=== PATIENT | male | born 1995 | race Caucasian/White ===

== ENCOUNTER 2024-07-14 14:00 | Inpatient (IN) | payer OTHER ==
[~2024-07-14] VITALS: Ht 160 cm; Wt 75.7 kg
[2024-07-14] MEDS ORDERED: PANTOPRAZOLE SODIUM 40 MG/VIAL IV STA (15:30)
[2024-07-14 15:45] LABS: BASOPHILS % 1.1 % (0.0-2.0); EOSINOPHILS % 3.7 % (0.0-5.0); HEMATOCRIT. 38.1 % (42.0-52.0); HEMOGLOBIN. 12.2 g/dL (14.0-18.0); LYMPHOCYTES % 40.4 % (20.0-50.0); MEAN CORPUSCULAR HEMOGLOBIN 26.1 pg (28.0-32.0); MEAN CORPUSCULAR VOLUME 81.5 fL (80.0-94.0); MEAN PLATELET VOLUME 9.7 fl (7.4-10.4); MONOCYTES % 7.6 % (2.0-8.0); NEUTROPHILS % 47.2 % (40.0-76.0); PLATELET 163 x1000/uL (130-400); RED BLOOD CELL COUNT 4.67 mill/uL (4.7-6.1); RED CELL DISTRIBUTION WIDTH 13.2 % (11.6-14.6); WHITE BLOOD COUNT 5.9 x1000/uL (4.5-11.0)
[2024-07-14 15:54] LABS: CHLORIDE 109 mEq/L (98-107); INR 0.9; POTASSIUM 3.4 mEq/L (3.5-5.1); PROTHROMBIN TIME 10.4 sec (9.6-11.0); SODIUM 140 mEq/L (136-145)
[2024-07-14 15:55] LABS: CALCIUM 8.3 mg/dL (8.7-10.4); CARBON DIOXIDE 25 mEq/L (21-32)
[2024-07-14 16:00] LABS: CREATININE 0.8 mg/dL (0.6-1.3); GLUCOSE 135 mg/dL (70-105); UREA NITROGEN BLOOD 14 mg/dL (9-23)
[2024-07-14 16:02] LABS: ALANINE AMINOTRANSFERASE 12 IU/L (10-49); ALBUMIN 3.5 g/dL (3.2-4.8); ASPARTATE AMINOTRANSFERASE 22 IU/L (<34); BILIRUBIN TOTAL 0.3 mg/dL (0.1-1.0)
[2024-07-14] MEDS: PANTOPRAZOLE SODIUM 40 MG/VIAL IV NR (16:07)
[2024-07-14 16:29] LABS: BILIRUBIN DIRECT < 0.1 mg/dL (<=3.0); TROPONIN I HIGH SENSITIVITY < 4 ng/L (3.0-53)
[2024-07-14] MEDS ORDERED: OCTREOTIDE ACETATE 50 MCG/ML 1ML SUBCUT ONE (17:00)
[2024-07-14] MEDS ORDERED: CEFTRIAXONE 1GM/50ML 50 ML IV ONE (17:00)
[2024-07-14] MEDS: SODIUM CHLORIDE 0.9% 1,000 ML IV ONE (17:00)
[2024-07-14] MEDS: CEFTRIAXONE 1GM/50ML 50 ML IV NR (17:58)
[2024-07-14] MEDS: OCTREOTIDE ACETATE 50 MCG/ML 1ML SUBCUT NR (17:58)
[2024-07-14 23:00] VITALS: BP 121/61; PULSE 87; RESP 18; TEMP 36.72516; TEMP 36.7516; O2SAT 98
[2024-07-14] MEDS ORDERED: ZOLPIDEM TARTRATE 5MG TABLET PO PRN (23:15)
[2024-07-14] MEDS ORDERED: DIPHENHYDRAMINE 50MG/ML VIAL IV PRN (23:15)
[2024-07-14] MEDS ORDERED: ACETAMINOPHEN 325MG TABLET PO PRN (23:15)
[2024-07-15] MEDS: POTASSIUM CHLORIDE 20MEQ TABLET SR PO NR (00:22)
[2024-07-15] MEDS: PANTOPRAZOLE SODIUM 40 MG/VIAL IV SCH (00:22)
[2024-07-15] MEDS: MVI, ADULT NO.1 10 ML, FOLIC ACID 1 MG, THIAMINE HCL 100 MG in SODIUM CHLORIDE 0.9% 1,0... IV SCH (00:56)
[2024-07-15] MEDS: ACETAMINOPHEN 325MG TABLET PO PRN (01:19)
[2024-07-15] MEDS ORDERED: OLAN10TA3 PO (01:30)
[2024-07-15] MEDS ORDERED: LEVE750T4 PO (01:30)
[2024-07-15 02:21] VITALS: BP 101/55; PULSE 74; RESP 20; TEMP 36.6696; O2SAT 98
[2024-07-15 04:00] VITALS: BP 109/68; PULSE 71; RESP 20; TEMP 36.55848; O2SAT 98
[2024-07-15 05:51] LABS: CARBON DIOXIDE 24 mEq/L (21-32); CHLORIDE 109 mEq/L (98-107); POTASSIUM 4.2 mEq/L (3.5-5.1); SODIUM 140 mEq/L (136-145)
[2024-07-15 05:57] LABS: CREATININE 0.8 mg/dL (0.6-1.3); GLUCOSE 96 mg/dL (70-105)
[2024-07-15 05:58] LABS: UREA NITROGEN BLOOD 8 mg/dL (9-23)
[2024-07-15 06:52] LABS: BASOPHILS % 0.5 % (0.0-2.0); EOSINOPHILS % 6.1 % (0.0-5.0); HEMATOCRIT. 36.3 % (42.0-52.0); HEMOGLOBIN. 11.6 g/dL (14.0-18.0); LYMPHOCYTES % 56.2 % (20.0-50.0); MEAN CORPUSCULAR HEMOGLOBIN 26.4 pg (28.0-32.0); MEAN CORPUSCULAR HGB CONC 31.9 g/dL (31.0-37.0); MEAN CORPUSCULAR VOLUME 82.7 fL (80.0-94.0); MEAN PLATELET VOLUME 10.8 fl (7.4-10.4); MONOCYTES % 8.7 % (2.0-8.0); NEUTROPHILS % 28.5 % (40.0-76.0); PLATELET 147 x1000/uL (130-400); RED BLOOD CELL COUNT 4.39 mill/uL (4.7-6.1); RED CELL DISTRIBUTION WIDTH 13.5 % (11.6-14.6); WHITE BLOOD COUNT 5.6 x1000/uL (4.5-11.0)
[2024-07-15 08:00] VITALS: BP 104/62; PULSE 72; RESP 18; TEMP 36.9474; O2SAT 100
[2024-07-15] MEDS: OLANZAPINE 10MG TABLET PO SCH (08:24)
[2024-07-15] MEDS: SODIUM CHLORIDE 0.9% 1,000 ML IV SCH (08:24)
[2024-07-15] MEDS: LEVETIRACETAM 500MG PREMIX 100 ML IV SCH (08:25)
[2024-07-15 12:00] VITALS: BP 121/79; PULSE 76; RESP 18; TEMP 36.6696; O2SAT 99
[2024-07-15 16:00] VITALS: BP 106/59; PULSE 51; RESP 18; TEMP 36.28068; O2SAT 96
[2024-07-15] MEDS: ONDANSETRON HCL 4MG/2ML INJ IV PRN (16:31)
[2024-07-15 20:00] VITALS: BP 91/48; PULSE 47; RESP 18; TEMP 35.78064; O2SAT 97
[2024-07-16] VITALS: BP 95/60; PULSE 52; RESP 20; TEMP 36.114; O2SAT 97
[2024-07-16 03:45] VITALS: BP 92/58; PULSE 39; RESP 20; TEMP 36.3918; O2SAT 96
[2024-07-16 08:00] VITALS: BP 102/46; PULSE 52; RESP 18; TEMP 36.61404; O2SAT 95
[2024-07-16 08:14] LABS: BASOPHILS % 0.4 % (0.0-2.0); EOSINOPHILS % 6.6 % (0.0-5.0); HEMATOCRIT. 36.1 % (42.0-52.0); HEMOGLOBIN. 11.4 g/dL (14.0-18.0); LYMPHOCYTES % 57.4 % (20.0-50.0); MEAN CORPUSCULAR HEMOGLOBIN 26.1 pg (28.0-32.0); MEAN CORPUSCULAR HGB CONC 31.7 g/dL (31.0-37.0); MEAN CORPUSCULAR VOLUME 82.5 fL (80.0-94.0); MEAN PLATELET VOLUME 10.6 fl (7.4-10.4); MONOCYTES % 7.7 % (2.0-8.0); NEUTROPHILS % 27.9 % (40.0-76.0); PLATELET 135 x1000/uL (130-400); RED BLOOD CELL COUNT 4.37 mill/uL (4.7-6.1); RED CELL DISTRIBUTION WIDTH 13.1 % (11.6-14.6); WHITE BLOOD COUNT 5.1 x1000/uL (4.5-11.0)
[2024-07-16 08:22] LABS: CHLORIDE 111 mEq/L (98-107); SODIUM 142 mEq/L (136-145)
[2024-07-16 08:23] LABS: CARBON DIOXIDE 24 mEq/L (21-32)
[2024-07-16 08:24] LABS: CALCIUM 8.2 mg/dL (8.7-10.4)
[2024-07-16 08:28] LABS: CREATININE 0.8 mg/dL (0.6-1.3); IRON 77 ug/dL (65-175)
[2024-07-16 08:29] LABS: ALANINE AMINOTRANSFERASE 11 IU/L (10-49); GLUCOSE 81 mg/dL (70-105); UREA NITROGEN BLOOD 6 mg/dL (9-23)
[2024-07-16 08:31] LABS: ASPARTATE AMINOTRANSFERASE 19 IU/L (<34); BILIRUBIN TOTAL 0.4 mg/dL (0.1-1.0); TOTAL IRON BINDING CAPACITY 76 ug/dl (250-425)
[2024-07-16 08:33] LABS: VITAMIN B12 SERUM 539 pg/mL (211-911)
[2024-07-16 08:34] LABS: FERRITIN 25 ng/mL (22-322)
[2024-07-16 08:43] LABS: HEPATITIS B SURFACE ANTIGEN NEGATIVE (Negative)
[2024-07-16 08:50] LABS: FOLIC ACID (FOLATE) SERUM > 20.00 ng/mL (>5.38)
[2024-07-16 09:03] LABS: HEPATITIS A AB IGM NEGATIVE (Negative)
[2024-07-16 09:04] LABS: HEPATITIS B CORE AB IGM NEGATIVE (Negative); HEPATITIS C AB NON REACTIVE (Neg) (Negative)
[2024-07-16 12:00] VITALS: BP 95/42; PULSE 52; RESP 19; TEMP 36.44736; O2SAT 94
[2024-07-16] MEDS: SUCRALFATE 1G TABLET PO SCH (13:28)
[2024-07-16 16:00] VITALS: BP 117/52; PULSE 63; RESP 18; TEMP 36.55848; O2SAT 96
[2024-07-16 18:48] VITALS: BP 117/53; PULSE 77; TEMP 98.5; O2SAT 99
[2024-07-17 04:00] VITALS: BP 108/60; RESP 17; TEMP 36.114; O2SAT 99
[2024-07-17 08:00] VITALS: BP 134/77; PULSE 76; RESP 18; TEMP 36.3918; O2SAT 98
[2024-07-17 12:00] VITALS: BP 125/61; PULSE 80; RESP 18; TEMP 36.3918; O2SAT 97
[2024-07-17 16:00] VITALS: BP 106/57; PULSE 65; RESP 18; TEMP 36.50292; O2SAT 98
[2024-07-17 20:00] VITALS: BP 100/60; PULSE 61; RESP 18; TEMP 35.89176; O2SAT 96
[2024-07-17] MEDS: MIRTAZAPINE 15MG TABLET PO SCH (21:45)
[2024-07-18 04:00] VITALS: BP 117/54; PULSE 63; RESP 19; TEMP 36.22512; O2SAT 96
[2024-07-18 08:00] VITALS: BP 106/57; PULSE 80; RESP 18; TEMP 36.00288; O2SAT 100
[2024-07-18 09:06] VITALS: BP 106/57; PULSE 75; RESP 18; TEMP 36.16956; O2SAT 99
[2024-07-18 10:06] LABS: CARCINOEMBRYONIC AG - SEND OUT 1.5 ng/mL (0.0-4.7)
[2024-07-18 12:00] VITALS: BP 102/60; PULSE 75; RESP 18; TEMP 36.16956; O2SAT 100
[2024-07-18 13:10] LABS: SACCHAROMYCES CEREVISIAE IGG 96.6 Units (0.0-24.9); SACCHAROMYCES CEREVISIAE IGM 45.2 Units (0.0-24.9)
[2024-07-18 16:00] VITALS: BP 115/61; PULSE 71; RESP 17; TEMP 36.22512; O2SAT 99
[2024-07-19] MEDS: LEVETIRACETAM 500MG TABLET PO SCH (03:22)
[2024-07-19] MEDS: OLANZAPINE 10MG TABLET PO SCH (03:23)
[2024-07-19 04:00] VITALS: BP 151/84; PULSE 99; RESP 16; TEMP 36.44736; O2SAT 98
[2024-07-19] MEDS ORDERED: CLONIDINE 0.1MG TABLET PO PRN (06:30)
[2024-07-19] MEDS: PANTOPRAZOLE 40MG DR TABLET PO SCH (06:46)
[2024-07-19 18:00] VITALS: PULSE 81; TEMP 36.3918
[2024-07-19 20:00] VITALS: BP 109/75; PULSE 77; RESP 18; TEMP 36.78072; O2SAT 99
[2024-07-20] VITALS: BP 118/82; PULSE 70; RESP 19; TEMP 36.44736; O2SAT 98
[2024-07-20 20:00] VITALS: BP 103/53; PULSE 77; RESP 18; TEMP 35.78064; O2SAT 95
[2024-07-21 04:00] VITALS: BP 100/53; PULSE 68; RESP 18; TEMP 36.114; O2SAT 96
[2024-07-21 08:00] VITALS: BP 102/58; PULSE 64; RESP 18; TEMP 36.61404; O2SAT 96
[2024-07-21 11:57] VITALS: BP 104/56; PULSE 75; TEMP 97.8; O2SAT 97
[2024-07-21 12:00] VITALS: BP 105/64; PULSE 78; RESP 18; TEMP 36.61404; O2SAT 97
[2024-07-21 17:06] LABS: ATYPICAL pANCA 1:40 titer (Neg:<1:20)
[2024-07-21] MEDS: IOHEXOL-350 100 ML BOTTLE ONE ×2 (19:58)
[2024-07-21 20:00] VITALS: BP 107/66; PULSE 78; RESP 18; TEMP 36.6696; O2SAT 98
[2024-07-22 08:00] VITALS: BP 114/63; PULSE 87; RESP 18; TEMP 36.50292
[2024-07-22] MEDS ORDERED: QUETIAPINE FUMARATE 50MG TABLET PO PRN (10:30)
[2024-07-22 12:00] VITALS: BP 119/69; PULSE 89; RESP 18; TEMP 36.44736
[2024-07-22 20:00] VITALS: BP 119/67; PULSE 67; RESP 20; TEMP 35.94732; O2SAT 94
[2024-07-22] MEDS: QUETIAPINE FUMARATE 50MG TABLET PO SCH (21:02)
[2024-07-23 08:00] VITALS: BP 109/79; PULSE 105; RESP 18; TEMP 36.50292; O2SAT 93
[2024-07-23 12:00] VITALS: BP 102/49; PULSE 60; RESP 18; TEMP 36.55848; O2SAT 94
[2024-07-23 16:00] VITALS: BP 113/77; PULSE 88; RESP 18; TEMP 36.50292; O2SAT 100
[2024-07-23 20:00] VITALS: BP 110/68; PULSE 67; RESP 19; TEMP 36.3918; O2SAT 100
[2024-07-24] VITALS: BP 104/61; PULSE 74; RESP 18; TEMP 36.50292; O2SAT 100
[2024-07-24 04:00] VITALS: BP 104/56; PULSE 51; RESP 18; TEMP 36.3918; O2SAT 100
[2024-07-24 08:00] VITALS: BP 99/69; PULSE 84; RESP 17; TEMP 36.28068; O2SAT 97
== END 2024-07-24 11:40 | DRG 378 ==
LOC: ER 14:00 → EDBEDREQ 17:39 → EDBEDREQTM 17:39 → 5WST 17:39 → 8WST 22:49 → UNDODISIN 07-19 11:45 → 6WST 07-23 14:00
PROVIDERS: ADMIT Internal Medicine; ATTEND Internal Medicine
DX: K92.0 Hematemesis (principal); Z59.00 Homelessness unspecified; K74.60 Unspecified cirrhosis of liver; J45.909 Unspecified asthma, uncomplicated; G40.909 Epilepsy, unspecified, not intractable, without status epilepticus; F25.0 Schizoaffective disorder, bipolar type; K63.89 Other specified diseases of intestine; F17.210 Nicotine dependence, cigarettes, uncomplicated; D64.9 Anemia, unspecified; B19.20 Unspecified viral hepatitis C without hepatic coma; K59.00 Constipation, unspecified; F15.90 Other stimulant use, unspecified, uncomplicated; Z87.828 Personal history of other (healed) physical injury and trauma; Z87.11 Personal history of peptic ulcer disease; Z93.3 Colostomy status
CPT/HCPCS: 36415; 71045; 74018; 74174; 74177; 80048; 80053; 80076; 82105; 82378; 82607; 82728; 82746; 83540; 83550; 83735; 84484; 85025; 85044; 86256; 86671; 86705; 86709; 87015; 87045; 87340; 87427; 87449; 89055; 93005; 99291; A4606; A4663; J0696; J1953; J2354; J2405; J2470; J3411; J3490; J7030; Q9967